=== PATIENT | female | born 1990 | race Caucasian/White ===

== ENCOUNTER → 2018-06-23 07:15 | Outpatient (CLI) | payer OTHER, SELFPAY ==
[2018-06-14 16:39] VITALS: BMI 46.0
== END ==
PROVIDERS: Referring Provider Obstetrics & Gynecology; Visit Provider Obstetrics & Gynecology
DX: O46.90 Antepartum hemorrhage, unspecified, unspecified trimester (principal)
CPT/HCPCS: 36415; 86850; 86900

== ENCOUNTER → 2018-06-24 17:01 | Outpatient (CLI) | payer OTHER, SELFPAY ==
[2018-06-24 16:18] VITALS: BMI 46.0
[2018-06-24 17:34] LABS: Absolute Neutrophil Count 7.8 X10^3/uL (2.0-7.7); Basophil# 0.03 X10^3/uL; Basophil% 0.3 % (0-1); Eosinophil# 0.06 X10^3/uL; Eosinophils% 0.6 % (0-5); Hematocrit 35.5 % (37-47); Hemoglobin 11.3 g/dl (12.0-15.0); Lymphocyte % 20.3 % (19-41); Mean Corp Hgb Conc 31.8 g/gl (32-36); Mean Corpuscular Hgb 29.3 pg (27.0-32.0); Mean Platelet Vol. 9.1 fl (6.2-12.0); Monocyte# 0.72 X10^3/uL; Monocyte% 6.6 % (0-10); Neutrophil # 7.81 X10^3/uL (2.7-7.7); Neutrophil % 71.8 % (47-70); Platelet Count 331 K/mm3 (150-450); RBC Distribution Width SD 43.2 fl (35.1-43.9); Red Blood Count 3.86 M/mm3 (4.2-5.4); White Blood Count 10.9 K/mm3 (4.4-11.0)
[2018-06-24 17:49] LABS: POSITIVE COUNT NO; POSITIVE DIFFERENTIAL NO; POSITIVE MORPHOLOGY NO
[2018-06-24 17:54] LABS: Glucose Challenge Gest 1H 50g 117 mg/dL (70-140)
[2018-06-24 18:48] LABS: HIV - WCH Non-Reactive (Nonreactive); Rubella IgG 370.5 IU/mL
[2018-06-24 21:21] LABS: Chlamydia Trachomatis by PCR Negative (Negative); Neisserai gonorrhoeae by PCR Negative (Negative); Probe Check PASS; Sample Adequacy Control PASS; Specimen Processing Control PASS
[2018-06-24 22:05] LABS: Rapid Plasmin Reagin (RPR) NONREACTIVE (NONREACTIVE)
[2018-06-28 11:11] LABS: HEPATITIS B SURFACE AG Negative (Negative)
[2018-06-30 10:46] LABS: HPV Reflexed? NOT INDICATED
== END ==
PROVIDERS: Referring Provider Obstetrics & Gynecology; Visit Provider Obstetrics & Gynecology
DX: Z34.90 Encounter for supervision of normal pregnancy, unspecified, unspecified trimester (principal)
CPT/HCPCS: 36415; 82950; 85025; 86592; 86703; 86762; 86850; 87086; 87340; 87491; 87591; 87624; 88175; G0145

== ENCOUNTER → 2018-09-13 13:10 | Outpatient (CLI) | payer OTHER, SELFPAY ==
[2018-07-19 13:23] VITALS: BMI 46.0
[2018-08-16 13:32] VITALS: BMI 46.0
--- NOTE | 2018-09-13 13:11 | US_ITS ---
STUDY: SECOND AND THIRD TRIMESTER OBSTETRICAL ULTRASOUND REASON FOR EXAM: Female, 28 years old. Routine survey. LMP: April 29, 2018. TECHNIQUE: Transabdominal TECHNICAL QUALITY: Adequate. PRIOR ULTRASOUND: None. FINDINGS: There is a single intrauterine fetus. The fetus is in a cephalic presentation. There is demonstrated cardiac activity with a heart rate of 144 bpm. There is a normal amniotic fluid volume. The largest amniotic fluid pocket measures 6.8 cm x 5.7 cm. The amniotic fluid index (LIZETH) is within normal limits. The placenta is posterior in location and is not low lying. There are Grade 0 placental changes. The cervix measures 4.1 cm in length. The bilateral adnexal regions are normal. BIOMETRY: BPD: 4.77 cm: 20 weeks, 3 days HC: 17.59 cm: 20 weeks, 1 days AC: 16.75 cm: 21 weeks, 6 days FL: 3.26 cm: 20 weeks, 2 days CI: 80% FL/BPD: 68% FL/HC: FL/AC: 19% HC/AC: 1.05 age by current US: 20 weeks, 5 days. SIMA by current US: January 26, 2019. Estimated weight: 387 grams, +/- 57 grams, 98 %. Age by LMP: 20 weeks, 5 days. SIMA by LMP: February 03, 2019. ANATOMY: Gender: Male Cranium: Normal lateral ventricles. Normal choroid plexus. Normal cerebellum. Normal cisterna magna. Normal face, nose and lips. Chest: Normal 4-chamber heart. Abdomen/Pelvis: Normal diaphragm. Normal stomach. Normal abdominal wall. Normal cord insertion. Normal 3 vessel cord. Normal kidneys. Normal bladder. Spine: Normal cervical spine. Normal thoracic spine. Normal lumbar spine. Normal sacrum. Extremities: Normal bilateral upper extremities. Normal bilateral lower extremities. US/OB Anatomy Scan IMPRESSION: Single live intrauterine gestation with a mean gestational age of 20 weeks and 55 days. Electronically Signed: Gustavo Lara, at 9:39 EDT , Service support ,
== END ==
PROVIDERS: Referring Provider Obstetrics & Gynecology; Visit Provider Obstetrics & Gynecology
DX: O09.90 Supervision of high risk pregnancy, unspecified, unspecified trimester (principal)
CPT/HCPCS: 76805

== ENCOUNTER → 2018-11-08 09:47 | Outpatient (CLI) | payer OTHER, SELFPAY ==
[2018-11-08 09:15] VITALS: BMI 46.0
[2018-11-08 10:12] LABS: Absolute Lymphocyte Count 1.67 X10^3/ul (0.83-4.51); Absolute Neutrophil Count 8.9 X10^3/uL (2.0-7.7); Basophil# 0.01 X10^3/uL; Basophil% 0.1 % (0-1); Eosinophil# 0.03 X10^3/uL; Eosinophils% 0.3 % (0-5); Hematocrit 34.3 % (37-47); Hemoglobin 11.3 g/dl (12.0-15.0); Lymphocyte # 1.67 X10^3/ul (4.0); Lymphocyte % 14.7 % (19-41); Mean Corp Hgb Conc 32.9 g/gl (32-36); Mean Corpuscular Hgb 30.5 pg (27.0-32.0); Mean Corpuscular Volume 92.5 fL (81-99); Mean Platelet Vol. 9.6 fl (6.2-12.0); Monocyte# 0.63 X10^3/uL; Monocyte% 5.6 % (0-10); Neutrophil # 8.91 X10^3/uL (2.7-7.7); Neutrophil % 78.6 % (47-70); POSITIVE COUNT NO; POSITIVE DIFFERENTIAL NO; POSITIVE MORPHOLOGY NO; Platelet Count 274 K/mm3 (150-450); RBC Distribution Width CV 13.5 % (11.6-14.6); RBC Distribution Width SD 44.4 fl (35.1-43.9); Red Blood Count 3.71 M/mm3 (4.2-5.4); White Blood Count 11.3 K/mm3 (4.4-11.0)
[2018-11-08 10:28] LABS: Glucose Challenge Gest 1H 50g 127 mg/dL (70-140)
== END ==
PROVIDERS: Referring Provider Obstetrics & Gynecology; Visit Provider Obstetrics & Gynecology
DX: Z34.90 Encounter for supervision of normal pregnancy, unspecified, unspecified trimester (principal)
CPT/HCPCS: 36415; 82950; 85025

== ENCOUNTER → 2018-12-14 13:48 | Outpatient (CLI) | payer OTHER, SELFPAY ==
[2018-11-08 09:15] VITALS: BMI 46.0
[2018-11-29 15:35] VITALS: BMI 46.0
--- NOTE | 2018-12-14 13:49 | US_ITS ---
STUDY: SECOND AND THIRD TRIMESTER OBSTETRICAL ULTRASOUND - LIMITED REASON FOR EXAM: Female, 28 years old. Assess for growth. LMP: April 29, 2018 PRIOR ULTRASOUND: September 13, 2018 TECHNIQUE: Transabdominal TECHNICAL QUALITY: Adequate. FINDINGS: There is a single intrauterine fetus. The fetus is in a cephalic presentation. There is demonstrated cardiac activity with a heart rate of 156 bpm. There is a normal amniotic fluid volume. The largest amniotic fluid pocket measures 4.5 cm. The amniotic fluid index (LIZETH) is 17.8 cm. The placenta is posterior There are Grade 1 placental changes. The cervix measures 4.41 cm in length. BIOMETRY: BPD: 8.82 cm: 35 weeks, 5 days HC: 31.48 cm: 35 weeks, 3 days AC: 31.19 cm: 35 weeks, 1 days FL: 6.67 cm: 34 weeks, 3 days Age by LMP: 32 weeks, 5 days. SIMA by LMP: February 03, 2019 age by prior US: 33 weeks, 5 days. SIMA by prior US: January 16, 2019. age by current US: 35 weeks, 2 days. SIMA by current US: January 16, 2019. Estimated weight: 2564 grams, +/- 37 grams, 96 percentile. US/OB Limited With Biometrics IMPRESSION: Single intrauterine with an estimated gestational age by ultrasound of 35 weeks and 2 days and an SIMA of January 16, 2019. Electronically Signed: Komal Hopper MD at 16:08 EDT Tel , Service support ,
== END ==
PROVIDERS: Referring Provider Obstetrics & Gynecology; Visit Provider Obstetrics & Gynecology
DX: O99.210 Obesity complicating pregnancy, unspecified trimester (principal); Z3A.00 Weeks of gestation of pregnancy not specified
CPT/HCPCS: 76816

== ENCOUNTER 2019-01-05 16:05 | Outpatient (CLI) | payer OTHER, SELFPAY ==
[2019-01-05 15:15] VITALS: BMI 46.7
[2019-01-05 16:15] VITALS: BMI 46.6
--- NOTE | 2019-01-05 16:15 | US_ITS ---
STUDY: OBSTETRICAL ULTRASOUND - BIOPHYSICAL PROFILE REASON FOR EXAM: Female, 28 years old. Nonreactive stress test LMP: PRIOR ULTRASOUND: December 14 2018 TECHNIQUE: Transabdominal TECHNICAL QUALITY: Adequate. FINDINGS: There is a single intrauterine fetus. The fetus is in a cephalic presentation. There is demonstrated cardiac activity with a heart rate of 170 bpm. There is a normal amniotic fluid volume. The largest amniotic fluid pocket measures 6.9 cm. The amniotic fluid index (LIZETH) is 14.6 cm. The placenta is posterior There are Grade 2-3 placental changes. Age by LMP: 35 weeks, 6 days. SIMA by LMP: February 03, 2019. BIOPHYSICAL PROFILE: Breathing Movements (FBM): 0 Gross Body Movements (GBM): 2 Tone (FT): 2 Amniotic Fluid Volume (AFV): 2 TOTAL SCORE: US/Biophysical Profile IMPRESSION: Abnormal biophysical profile of 10/16 Electronically Signed: Johny Bey MD at 18:42 EDT , Service support ,
[2019-01-05] MEDS: Lactated Ringers 1,000 ML 50 ML IV (17:00)
[2019-01-05 17:42] LABS: Basophil# 0.02 X10^3/uL; Basophil% 0.2 % (0-1); Eosinophil# 0.04 X10^3/uL; Eosinophils% 0.3 % (0-5); Hematocrit 34.8 % (37-47); Hemoglobin 11.2 g/dL (12.0-15.0); Lymphocyte % 14.8 % (19-41); Mean Corp Hgb Conc 32.2 g/dL (32-36); Mean Corpuscular Hgb 30.4 pg (27.0-32.0); Mean Corpuscular Volume 94.3 fL (81-99); Mean Platelet Vol. 10.1 fl (6.2-12.0); Monocyte# 0.82 X10^3/uL; Monocyte% 6.4 % (0-10); NRBC Flagged by Analyzer 0 % (0-5); Neutrophil # 9.97 X10^3/uL (2.7-7.7); Neutrophil % 77.3 % (47-70); Platelet Count 255 K/mm3 (150-450); RBC Distribution Width CV 13.6 % (11.6-14.6); RBC Distribution Width SD 46.3 fl (35.1-43.9); Red Blood Count 3.69 M/mm3 (4.2-5.4); White Blood Count 12.9 K/mm3 (4.4-11.0)
--- NOTE | 2019-01-08 03:35 | OB.TRI.PN ---
Progress Notes Date of Service: 01/05/19 Progress Note: heart tones 150 moderate variability reactive no decelerations category 1 tracing [place]: No regular contractions Assessment and plan extended monitoring and BPP obesity in ?reactive NST 8 out of 10 BPP. Discussed kick counts and plan repeat NST in 24 hours. Laboratory Studies: Laboratory Tests 01/05/19 01/05/19 Range/Units 16:55 16:55 WBC 12.9 H (4.4-11.0) K/mm3 RBC 3.69 L (4.2-5.4) M/mm3 Hgb 11.2 L (12.0-15.0) g/dL Hct 34.8 L (37-47) % MCV 94.3 (81-99) fL MCH 30.4 (27.0-32.0) pg MCHC 32.2 (32-36) g/dL RDW Std Deviation 46.3 H (35.1-43.9) fl RDW Coeff of Alexi 13.6 (11.6-14.6) % Plt Count 255 (150-450) K/mm3 MPV 10.1 (6.2-12.0) fl Immature Gran % (Auto) 1.000 H (0.0-0.9) % Neut % (Auto) 77.3 H (47-70) % Lymph % (Auto) 14.8 L (19-41) % [place] % (Auto) 6.4 (0-10) % Eos % (Auto) 0.3 (0-5) % Baso % (Auto) 0.2 (0-1) % Absolute Neuts (auto) 10.0 H (2.0-7.7) X10^3/uL Absolute Lymphs (auto) 1.90 (0.83-4.51) X10^3/uL Nucleated RBC % 0 (0-5) % Blood Type O POSITIVE Antibody Screen NEGATIVE Multi Select Codes - Urinary/Genital Urinary/Genital CPT Codes: 83086-99 non-stress test Interp
== END 2019-01-05 18:25 | disposition home or self-care (01) ==
LOC: WPOUT 16:10 → WP 16:10
PROVIDERS: Referring Provider Obstetrics & Gynecology; Visit Provider Obstetrics & Gynecology
DX: O99.210 Obesity complicating pregnancy, unspecified trimester (principal); Z3A.00 Weeks of gestation of pregnancy not specified
CPT/HCPCS: 36415; 59025; 59050; 76818; 85025; 86850; 86900; 86901; 99218; J7120; G0378

== ENCOUNTER → 2019-01-11 13:52 | Outpatient (CLI) | payer OTHER, SELFPAY ==
[2018-11-08 09:15] VITALS: BMI 46.0
[2019-01-11 07:02] VITALS: BMI 46.6
--- NOTE | 2019-01-11 13:56 | US_ITS ---
STUDY: SECOND AND THIRD TRIMESTER OBSTETRICAL ULTRASOUND - LIMITED REASON FOR EXAM: Female, 28 years old. Routine survey. LMP: April 29, 2018. PRIOR ULTRASOUND: December 14, 2018. TECHNIQUE: Transabdominal TECHNICAL QUALITY: Adequate. FINDINGS: There is a single intrauterine fetus. The fetus is in a cephalic presentation. There is demonstrated cardiac activity with a heart rate of 160 bpm. There is a normal amniotic fluid volume. The largest amniotic fluid pocket measures 6.7 cm x 4.2 cm. The amniotic fluid index (LIZETH) is 18.0 cm. The placenta is posterior in location and is not low lying. There are Grade 2 placental changes. The cervix measures 3.2 cm in length. BIOMETRY: BPD: 9.55 cm: 39 weeks, 0 days HC: 33.71 cm: 38 weeks, 5 days AC: 34.99 cm: 39 weeks, 0 days FL: 7.51 cm: 38 weeks, 3 days Age by LMP: 37 weeks, 5 days. SIMA by LMP: February 03, 2019. age by prior US: 39 weeks, 2 days. SIMA by prior US: January 16, 2019. age by current US: 38 weeks, 6 days. SIMA by current US: January 19, 2019. Estimated weight: 3591 grams, +/- 524 grams, 95 percentile. US/OB Limited With Biometrics IMPRESSION: Single live intrauterine gestation with a mean gestational age of 39 weeks and 2 days. The measurements obtained today fall within the normal expected range. Electronically Signed: Gustavo Lara, at 16:01 EDT , Service support ,
== END ==
PROVIDERS: Referring Provider Obstetrics & Gynecology; Visit Provider Obstetrics & Gynecology
DX: O09.90 Supervision of high risk pregnancy, unspecified, unspecified trimester (principal); Z3A.00 Weeks of gestation of pregnancy not specified
CPT/HCPCS: 76816

== ENCOUNTER → 2019-01-12 16:11 | Outpatient (CLI) | payer OTHER, SELFPAY ==
[2019-01-12 15:04] VITALS: BMI 46.6
== END ==
PROVIDERS: Referring Provider Nurse Practitioner Women's Health; Visit Provider Nurse Practitioner Women's Health
DX: O09.90 Supervision of high risk pregnancy, unspecified, unspecified trimester (principal)
CPT/HCPCS: 87081

== ENCOUNTER 2019-01-29 06:07 | Inpatient (IN) | payer OTHER, SELFPAY ==
[2019-01-11 07:02] VITALS: BMI 46.6
[2019-01-25 15:10] VITALS: BMI 46.6
[2019-01-29] MEDS: Lactated Ringers 500 ML 999 ML IV ×3 (07:10→11:25)
[2019-01-29 07:16] VITALS: BMI 48.6
[2019-01-29 07:44] LABS: Absolute Lymphocyte Count 1.37 X10^3/uL (0.83-4.51); Absolute Neutrophil Count 10.3 X10^3/uL (2.0-7.7); Basophil# 0.02 X10^3/uL; Basophil% 0.2 % (0-1); Eosinophil# 0.02 X10^3/uL; Eosinophils% 0.2 % (0-5); Hemoglobin 10.7 g/dL (12.0-15.0); Lymphocyte # 1.37 X10^3/ul (4.0); Mean Corp Hgb Conc 32.4 g/dL (32-36); Mean Corpuscular Hgb 30.7 pg (27.0-32.0); Mean Corpuscular Volume 94.6 fL (81-99); Mean Platelet Vol. 9.9 fl (6.2-12.0); Monocyte# 0.72 X10^3/uL; Monocyte% 5.8 % (0-10); NRBC Flagged by Analyzer 0 % (0-5); Neutrophil # 10.27 X10^3/uL (2.7-7.7); Platelet Count 241 K/mm3 (150-450); RBC Distribution Width CV 13.5 % (11.6-14.6); RBC Distribution Width SD 46.1 fl (35.1-43.9); Red Blood Count 3.49 M/mm3 (4.2-5.4); White Blood Count 12.5 K/mm3 (4.4-11.0)
[2019-01-29] MEDS: Lactated Ringers 1,000 ML 50 ML IV (08:10)
[2019-01-29 08:17] LABS: Absolute Lymphocyte Count 1.33 X10^3/uL (0.83-4.51); Absolute Neutrophil Count 10.2 X10^3/uL (2.0-7.7); Basophil# 0.02 X10^3/uL; Basophil% 0.2 % (0-1); Eosinophil# 0.02 X10^3/uL; Eosinophils% 0.2 % (0-5); Hematocrit 32.3 % (37-47); Hemoglobin 10.5 g/dL (12.0-15.0); Lymphocyte # 1.33 X10^3/ul (4.0); Lymphocyte % 10.8 % (19-41); Mean Corp Hgb Conc 32.5 g/dL (32-36); Mean Corpuscular Hgb 30.6 pg (27.0-32.0); Mean Corpuscular Volume 94.2 fL (81-99); Mean Platelet Vol. 10.7 fl (6.2-12.0); Monocyte# 0.65 X10^3/uL; Monocyte% 5.3 % (0-10); NRBC Flagged by Analyzer 0 % (0-5); Neutrophil # 10.19 X10^3/uL (2.7-7.7); Neutrophil % 82.8 % (47-70); Platelet Count 235 K/mm3 (150-450); RBC Distribution Width CV 13.8 % (11.6-14.6); RBC Distribution Width SD 47.3 fl (35.1-43.9); Red Blood Count 3.43 M/mm3 (4.2-5.4); White Blood Count 12.3 K/mm3 (4.4-11.0)
--- NOTE | 2019-01-29 09:07 | HP.PCM_ITS ---
- Problem List (1) Active labor at term Status: Acute (2) IUD contraception Status: Acute (3) Supervision of high-risk Status: Acute Qualifiers: Comment: PRR SIMA:02/03/19 sergio Kelly Spouse: Arnel (4) Obesity affecting Status: Acute Qualifiers: Comment: 1 tm glucola, healthy weight gain discussed, recommend growth us after 32 weeks and weekly nsts (5) Status: Acute Qualifiers: Comment: genetic, carrier, and ntd screening declined. anatomy us reviewed History Date of Admission: 01/29/19 Final SIMA: 02/03/19 Gestational age: 39 Weeks and 2 Days History of this : This is a 28 year-old, at 39 weeks gestational age presents IAL 5-6 cm dilated. she has had an uncomplicated . Surgical History: Surgical History (Last Reviewed 01/25/19 @ 15:09 by Fadia Bobo) History of tonsillectomy Z90.89 Allergies No Known Allergies Allergy (Verified 01/29/19 07:18) Home Medications: Home Medications vitamin#30 30 mg iron-10 mg iron-folic acid 1 mg-omg3 capsule 1 cap PO DAILY cap 06/14/18 Smoking Status: Never smoker Alcohol: None Number of Fetus(es): 1 NST - FHR Rate Baby A Baseline: 140 Variability:: Moderate Accelerations:: 15 x 15 Decelerations:: None NST Reactive:: Yes FHR Category:: Category I Uterine Activity:: q 3-5 History Past Pregnancies: Past Pregnancies Delivery Date Name GA/Weeks Outcome Route Weight Infant Gender Labor Length Anesthesia Delivery Location Provider FOB Labs: Mom's Problem List Problem Status Onset Code Active labor at term Acute Mom's Labs & Results 01/29/19 07:15 WBC 12.5 H RBC 3.49 L Hgb 10.7 L Hct 33.0 L MCV 94.6 MCH 30.7 MCHC 32.4 RDW Std Deviation 46.1 H RDW Coeff of Alexi 13.5 Plt Count 241 MPV 9.9 Immature Gran % (Auto) 0.800 Neut % (Auto) 82.0 H Lymph % (Auto) 11.0 L [place] % (Auto) 5.8 Eos % (Auto) 0.2 Baso % (Auto) 0.2 Absolute Neuts (auto) 10.3 H Absolute Lymphs (auto) 1.37 Nucleated RBC % 0 Course Did the patient receive Yes care? Labs Blood Type: O RH: POSITIVE RPR/VDRL/Syphilis Nonreactive Rubella status Immune HbSAg Negative Date Done: 06/24/18 Chlamydia Negative Gonorrhea Negative HIV/AIDS Non-Reactive Group B Strep: Negative Current Obstetrical History Gestational Diabetes No Incompetent Cervix No Infertility No IUGR No Macrosomia No Hypertension/Pre-eclampsia No Placenta Previa/Abruption No PTL/PROM No Uterine anomaly No Oligohydramnios No Polyhydramnios No Multiple gestation No Past Medical History Asthma Yes: childhood asthma Diabetes No Hypertension No Heart disease No Mitral valve prolapse No Neurologic/Seizure disorder/ No Migraines Kidney disease No Liver disease No Varicosities No Clotting disorders/Hx of DVT No Thyroid Dysfunction No Other medical diseases No Psychiatric disorders No Major trauma No Abnormal PAP smear No Sleep apnea No Mammogram in the last 2 years No Social History Marital Status: Alleged father Arnel Dimas Hx Smoking No Smoking Status Never smoker Expected Infant Delivery Method: Spontaneous Vaginal Review of Systems Constitutional: Denies: Fever, Malaise Eyes: Denies: Blurred vision, Vision Change HEENT: Denies: Head Aches, Visual Changes Cardiovascular: Denies: Chest Pain, Palpitations Respiratory: Denies: Cough, Shortness of Breath, Wheezing Gastrointestinal: Denies: Abdominal Pain, Diarrhea, Nausea, Vomiting Genitourinary: Denies: Dysuria, Hematuria Musculoskeletal: Denies: Joint Pain, Muscle pain Skin: Denies: Lesions, Rash Neurological: Denies: Blurred vision, Focal weakness, Headaches Psychiatric: Denies: Anxiety, Depression Endocrine: Denies: Heat/ Cold Intolerance Hematologic/ Lymphatic: Denies: Easy Bruising, Easy Bleeding Physical Exam General: Alert, Cooperative, No apparent distress HEENT: Atraumatic, Normocephalic. Negative for: Thyromegaly, Lymphadenopathy Cardiovascular: Regular rate Lungs: Normal air movement Abdomen: Soft, Non Tender, Gravid Neurological: Deep Tendon Reflexes 2+/4 and Symmetrical, Neuro grossly intact. Negative for: Clonus [employer]: Normal external genitalia. Negative for: Vulvar lesions Estimated gestational size: Appropriate for gestational size Presentation: Cephalic Cervix Dilation (cm): 5.5 Assessment/Plan All Active Problems (Last Reviewed 01/25/19 @ 15:09 by Fadia Bobo) Active labor at term (Acute) IUD contraception (Acute) Supervision of high-risk (Acute) Obesity affecting (Acute) (Acute) This is a 28 year-old, , at 39 weeks gestational age presents IAL. Patient presents in active labor, plan expectant management for vaginal deliver y. AROM clear fluid. Pitocin if no cervical change. Pain management: Plans epidural. GBS negative. Management of any complications: None. I have reviewed the [facility] and made any clinically relevant updates.
[2019-01-29] MEDS: fentaNYL-bupivacaine (epidural) 100 ML BAG EPIDURAL ×3 (11:41→20:56)
[2019-01-29] MEDS: Oxytocin 30 units/NS 500 ml 30 UNITS/500 ML IV.SOLN IV (14:17)
[2019-01-29] MEDS: Lactated Ringers 1,000 ML 200 ML IV ×2 (14:42→19:48)
--- NOTE | 2019-01-29 16:34 | PN_ITS ---
Progress Note FHT: 140 Moderate variability reactive no decelerations category I tracing [place]: q2-3 Contractions position changes to encourage descent 8-9 cm pit per protocol
[2019-01-29] MEDS: Acetaminophen 325 MG Tablet PO (17:42)
[2019-01-29] MEDS: Ondansetron 4 MG/2 ML Vial IV (17:43)
[2019-01-30] MEDS: Lactated Ringers 1,000 ML 190 ML IV (00:57)
[2019-01-30] MEDS: Lactated Ringers 500 ML 999 ML IV (01:53)
[2019-01-30] MEDS: fentaNYL-bupivacaine (epidural) 100 ML BAG EPIDURAL (02:10)
--- NOTE | 2019-01-30 02:46 | PLAC_PTH ---
PATIENT: SHAHRAM SMITH LOC: WP U#:[id number] AGE/SX: 28/F ROOM: WP002 RE01/29/[address]: Dr. Arabella Costa MD : 1990 BED: 1 DIS: 02/01/2019 SPEC #: [id number] RECD: 01/30/19 04:13 STATUS: JOSEPH REMakayla #: [id number] GEORGE: 01/30/19 02:[address]: Arabella Costa DEPT: SURGICAL PATHOLOGY RECD BY: Josh Self ENTERED: 01/31/19 12:06 SP TYPE: PLACENTA OTHR DR: No Primary Care Phys Tissues: Placenta, NOS Procedures: Surgery Specimen Level V HEADER OPERATION: Vaginal delivery PRE-OP DIAGNOSIS: Hemorrhage TISSUE SUBMITTED: Placenta MICROSCOPIC DIAGNOSIS Placenta: Placental disc - third trimester placenta (659 gm). - Focal acute vasculitis of subamnionic blood vessels. Membranes - moderate acute chorioamnionitis. Umbilical cord - three blood vessels and moderate acute funisitis. ERNIE:haider 02/02/19 MICROSCOPIC DESCRIPTION Slides are reviewed. GROSS DESCRIPTION SPECIMEN: PLACENTA / CLINICAL INFORMATION: A. Weight: 4.132 kg B. Gestational Age: 39 weeks C. Sex: Male PLACENTAL WEIGHT (POST FIXATION): 659 gm PLACENTAL DIMENSIONS: 18 x 18 x 3.5 cm PLACENTAL SHAPE: Usual ovoid PLACENTAL WEIGHT FOR GESTATIONAL AGE: Over 99th percentile MEMBRANES - Present A. Insertion: Marginal B. Site of rupture from edge: 5 cm from edge of placental disc C. Color of membrane: Shaikh, slightly greenish consistent with meconium staining. D. Abnormalities: None UMBILICAL CORD - Present A. Color: Shaikh-arroyo B. Insertion: Central C. Length: 35 cm D. Diameter: 1.3 cm E. Number of vessels: Three F. Abnormalities: None PLACENTAL DISC - Present A. Color of surface: Shaikh-arroyo B. surface abnormalities: surface is shaikh-greenish consistent with meconium staining. A focal area of subamnionic is noted adjacent to the insertion of the umbilical cord. C. Maternal cotyledons: Intact with minimal tears D. Attached retro placental clot: No clot E. Cut surface: Dark red and spongy F. Lesions: None G. Separate clot: Absent SECTIONS SUBMITTED: 1. Membrane roll 2. Cord, maternal end 3. Cord, end 4. Placental disc, and maternal surfaces 5. Placental disc, and maternal surfaces 6. Placental disc, and maternal surfaces SJ:haider 02/01/19 TC:3 CPT: 92165
[2019-01-30] MEDS: Oxytocin 30 units/NS 500 ml 30 UNITS/500 ML IV.SOLN 500 UNITS IV (02:50)
[2019-01-30] MEDS: Methylergonovine 0.2 MG/ML Ampul IM (02:54)
[2019-01-30] MEDS: 0.9% Saline Lock 10 ML Syringe IV ×2 (03:13→15:53)
--- NOTE | 2019-01-30 03:33 | PCM.OPRPT ---
Problem List (1) Active labor at term Status: Acute (2) IUD contraception Status: Acute (3) Supervision of high-risk Status: Acute Qualifiers: Comment: PRR SIMA:02/03/19 sergio Kelly Spouse: Arnel (4) Obesity affecting Status: Acute Qualifiers: Comment: 1 tm glucola, healthy weight gain discussed, recommend growth us after 32 weeks and weekly nsts (5) Status: Acute Qualifiers: Comment: genetic, carrier, and ntd screening declined. anatomy us reviewed Vaginal Delivery Maternal Presentation: Active Labor 28-year-old G1, P0 at 39 weeks presents in active labor 5 to 6 cm. Amniotic Membrane Rupture Type: Artificial Amniotic Fluid Description: Clear Final SIMA: 02/03/19 Gestational age: 39 Weeks and 3 Days Date of Procedure: 01/30/19 Pre-Operative Diagnosis: ial maternal fever at delivery Post-Operative Diagnosis: same plus hemorrhage sec atony and retained membranes Surgery/ Procedure Performed: Spontaneous Vaginal Delivery, - - uterine curettage Type of Anesthesia: Epidural Description of Procedure: Patient began pushing and delivered the head in the ARINA presentation. The head was delivered atraumatically. The anterior and posterior shoulders delivered without complication followed by the rest of the infant and the infant was placed on the maternal abdomen. Delayed cord clamping was employed for approximately 60 seconds. Cord was clamped and cut and gentle traction was applied to the cord and the placenta delivered spontaneously immediately following it was noted to be intact with three-vessel cord. The perineum and vagina were inspected and noted to have a supraclitoral first-degree laceration that was repaired with 3-0 Vicryl rapide and a second-degree perineal laceration that was repaired with a 3-0 Vicryl rapide. Patient developed increased bleeding and uterine atony and after manual uterine exploration some retained membranes were noted. Banjo curette was used to scrape the lining of the uterus which again removed additional membranes. It was then felt that all retained products were removed and after given Methergine and Hemabate and IV Pitocin with bimanual massage bedside ultrasound confirmed no additional products in the lining of the uterus and bleeding slowed down to within normal limits. Tranexamic acid was also given to the IV EBL was 1300 cc. Patient and infant tolerated delivery well. Vital signs showed initial sinus tachycardia and then resolution the normal blood pressure and heart rate in the 90s. Additional IV fluids were given and CBC was ordered stat as well as in the morning. 2 units were typed and crossed to be held and available. Plan of care was reviewed with nursing and plan for IV Ancef to be given due to manual manipulation. Presentation: ARINA Placental Delivery Description: Spontaneous Cord Entanglement: None Estimated Blood Loss: 1300 A gender: Male Episiotomy Description: None Laceration: Perineal Extension/lac, 2nd degree Medications given after delivery: IV Pitocin, IM Methergin, IM Hemabate, - - tranexamic acid Complications: - - hemorrhage Multi Select Codes - Urinary/Genital Urinary/Genital CPT Codes: 69238 Vaginal Delivery global pkg, Other Procedure See Report - 30476 uterine curettage
[2019-01-30 03:50] LABS: Absolute Lymphocyte Count 1.09 X10^3/uL (0.83-4.51); Absolute Neutrophil Count 12.8 X10^3/uL (2.0-7.7); Basophil# 0.03 X10^3/uL; Basophil% 0.2 % (0-1); Eosinophil# 0.01 X10^3/uL; Eosinophils% 0.1 % (0-5); Hematocrit 31.5 % (37-47); Hemoglobin 10.2 g/dL (12.0-15.0); Lymphocyte # 1.09 X10^3/ul (4.0); Lymphocyte % 7.2 % (19-41); Mean Corp Hgb Conc 32.4 g/dL (32-36); Mean Corpuscular Hgb 30.7 pg (27.0-32.0); Mean Corpuscular Volume 94.9 fL (81-99); Monocyte# 1.03 X10^3/uL; Monocyte% 6.8 % (0-10); NRBC Flagged by Analyzer 0 % (0-5); Neutrophil # 12.82 X10^3/uL (2.7-7.7); Neutrophil % 85.2 % (47-70); Platelet Count 216 K/mm3 (150-450); RBC Distribution Width CV 13.7 % (11.6-14.6); RBC Distribution Width SD 47.3 fl (35.1-43.9); Red Blood Count 3.32 M/mm3 (4.2-5.4); White Blood Count 15.1 K/mm3 (4.4-11.0)
[2019-01-30] MEDS: Carboprost Tromethamine 250 MCG/ML Ampul IM (04:08)
[2019-01-30] MEDS: Cefazolin 2 GM in 0.9% Normal Saline 100 ML IV (04:09)
[2019-01-30] MEDS: Naproxen 250 MG Tablet 500 MG PO (05:36)
[2019-01-30 07:20] LABS: Absolute Lymphocyte Count 1.16 X10^3/uL (0.83-4.51); Absolute Neutrophil Count 19.6 X10^3/uL (2.0-7.7); Basophil# 0.04 X10^3/uL; Basophil% 0.2 % (0-1); Eosinophil# 0.01 X10^3/uL; Hematocrit 26.4 % (37-47); Hemoglobin 8.8 g/dL (12.0-15.0); Lymphocyte # 1.16 X10^3/ul (4.0); Lymphocyte % 5.1 % (19-41); Mean Corp Hgb Conc 33.3 g/dL (32-36); Mean Corpuscular Hgb 31.3 pg (27.0-32.0); Mean Platelet Vol. 10.1 fl (6.2-12.0); Monocyte# 1.56 X10^3/uL; Monocyte% 6.9 % (0-10); NRBC Flagged by Analyzer 0 % (0-5); Neutrophil # 19.64 X10^3/uL (2.7-7.7); POSITIVE DIFFERENTIAL YES; Platelet Count 211 K/mm3 (150-450); RBC Distribution Width CV 13.6 % (11.6-14.6); RBC Distribution Width SD 46.5 fl (35.1-43.9); Red Blood Count 2.81 M/mm3 (4.2-5.4); White Blood Count 22.6 K/mm3 (4.4-11.0)
[2019-01-30 07:24] LABS: Differential Indicated SCAN CRITERIA MET
[2019-01-30 08:00] VITALS: BP 130/61; PULSE 84; RESP 18; TEMP 36; TEMP 36.6; O2SAT 96
[2019-01-30 12:00] VITALS: BP 142/65; PULSE 100; RESP 16; TEMP 36.2
[2019-01-30] MEDS: Prenatal Vits Tablet 1 TABLET PO (15:53)
[2019-01-30 15:54] VITALS: BP 128/62; PULSE 88; RESP 20; TEMP 36.6
[2019-01-30 20:14] VITALS: BP 104/54; PULSE 96; RESP 18; TEMP 36.6
[2019-01-31] VITALS (7 sets, daily range): BP systolic 85–119; BP diastolic 39–66; PULSE 84–106; RESP 16–20; TEMP 36.1–36.6
--- NOTE | 2019-01-31 04:26 | NURSING ---
0420: This RN in room to assess patient's vital signs and perform a focused assessment. Pt was sleeping when RN entered room. Blood pressure was low, but HR and RR were WNL. Uterus firm at u-1 with small bleeding. Pt. reports bleeding has been a small amount with no clots or trickles. Pt. denies feeling fatigued, lightheaded, dizzy, or sick. Another blood pressure was obtained and still running 80s/40s. This RN instructed pt. that another BP and belly check would be obtained at 0600. Will continue to monitor.
[2019-01-31] MEDS: 0.9% Saline Lock 10 ML Syringe IV (05:09)
[2019-01-31] MEDS: Prenatal Vits Tablet 1 TABLET PO (13:09)
[2019-01-31 13:39] LABS: Pathologist Review Reviewed
--- NOTE | 2019-01-31 14:43 | NURSING ---
pt was pumping this morning using her own pump and starting to get a few drops. This afternoon she has started putting baby to breast and he has nursed 20 minutes at one feeding. Rosalinda Banuelos RN is also helping her.
[2019-01-31] MEDS: Naproxen 250 MG Tablet 500 MG PO (15:09)
[2019-02-01 01:59] VITALS: BP 103/42; PULSE 89; RESP 18; TEMP 37.1
[2019-02-01] MEDS: Naproxen 250 MG Tablet 500 MG PO ×2 (02:05→09:48)
--- NOTE | 2019-02-01 07:56 | PCM.PN.OB ---
Patient Problems: Active and Suspected Problems (Last Reviewed 01/25/19 @ 15:09 by Fadia Bobo) Active labor at term (Acute) Subjective: doing well no complaints pain controlled no CP SOB N V ambulating well tolerating po lochia moderate, going well. Baby in SCN but doing well. - Physical Exam General: Alert, Oriented x3 Abdomen: Soft, Non Tender, Non-Distended, - - FF below U Vital Signs Temp Pulse Resp BP Pulse Ox 98.7 F 89 18 103/42 L 96 02/01/19 01:59 02/01/19 01:59 02/01/19 01:59 02/01/19 01:59 01/30/19 08:00 Oxygen Delivery Method Room Air Weight: 319 lb 10.724 oz Body Mass Index (BMI) 48.6 Intake and Output for Last 24 Hours 01/30/19 01/31/19 02/01/19 23:59 23:59 23:59 Intake Total 2171.99 / 2171.99 Output Total 450 / 450 Balance 1721.99 / 1721.99 Laboratory Tests Past 24 Hrs 01/30/19 07:04 Diff Path Review Reviewed Medical Necessity - Tobacco Use Smoking Status: Never smoker Assessment/Plan All Active Problems (Last Reviewed 01/25/19 @ 15:09 by Fadia Bobo) Active labor at term (Acute) IUD contraception (Acute) Supervision of high-risk (Acute) Obesity affecting (Acute) (Acute) s/p PPD # 2 1. routine post delivery care 2. breast feeding- support given 3. rh positive 4. rubella immune 5. stool softener encouraged 6. Continue vitamin and alternate time OTC FE 7. home today
[2019-02-01 08:00] VITALS: BP 134/83; PULSE 94; RESP 16; TEMP 36.2
--- NOTE | 2019-02-01 08:03 | DCINST_ITS ---
Additional Instructions: If you experience any of the following, contact your healthcare provider. * Bleeding that soaks a pad every hour for 2 hours * Fever 100.4 or higher * Unrelieved incision or abdominal pain * Swelling, redness, discharge or bleeding from your incision or episiotomy site * Your incision begins to separate * Problems urinating (including inability to urinate or burning while urinating). * Visual changes * Severe headache * Flu-like symptoms * Pain or redness in one of both of your breasts * Pain, warmth, tenderness or swelling in your legs, especially the calf area * Frequent nausea and vomiting * Symptoms of depression or anxiety If you experience any of the following, call 911 or go to the nearest Emergency Room. * Chest pain * Problems breathing * Seizure activity * Partial or complete paralysis of a body part, slurred speech, weakness or drooping of the face, or a sudden inability to walk or hold your balance Allergies/Adverse Reactions: Allergies No Known Allergies Allergy (Verified 01/29/19 07:18) Medications to take at Discharge vitamin#30 30 mg iron-10 mg iron-folic acid 1 mg-omg3 capsule 1 cap PO DAILY cap 06/14/18 Primary Care Physician: Care Physician,No Primary [Primary Care Provider] - Test Results: Test results from this visit will be discussed in further detail at your follow- up appointment, if applicable.
--- NOTE | 2019-02-01 08:03 | PCM.DCVAG ---
Additional Instructions: If you experience any of the following, contact your healthcare provider. Bleeding that soaks a pad every hour for 2 hours Fever 100.4 or higher Unrelieved incision or abdominal pain Swelling, redness, discharge or bleeding from your incision or episiotomy site Your incision begins to separate Problems urinating (including inability to urinate or burning while urinating). Visual changes Severe headache Flu-like symptoms Pain or redness in one of both of your breasts Pain, warmth, tenderness or swelling in your legs, especially the calf area Frequent nausea and vomiting Symptoms of depression or anxiety If you experience any of the following, call 911 or go to the nearest Emergency Room. Chest pain Problems breathing Seizure activity Partial or complete paralysis of a body part, slurred speech, weakness or drooping of the face, or a sudden inability to walk or hold your balance Allergies/Adverse Reactions: Allergies No Known Allergies Allergy (Verified 01/29/19 07:18) Medications to take at Discharge vitamin#30 30 mg iron-10 mg iron-folic acid 1 mg-omg3 capsule 1 cap PO DAILY cap 06/14/18 Primary Care Physician: Care Physician,No Primary [Primary Care Provider] - Test Results: Test results from this visit will be discussed in further detail at your follow-up appointment, if applicable.
--- NOTE | 2019-02-01 09:33 | PCM.PN.OB ---
Patient Problems: Active and Suspected Problems (Last Reviewed 01/25/19 @ 15:09 by Fadia Bobo) Active labor at term (Acute) Subjective: late entry- seen 01/31- doing well no complaints pain controlled no CP SOB N V ambulating well tolerating po lochia moderate, going well - Physical Exam Vital Signs Temp Pulse Resp BP Pulse Ox 97.2 F L 94 16 134/83 H 96 02/01/19 08:00 02/01/19 08:00 02/01/19 08:00 02/01/19 08:00 01/30/19 08:00 Oxygen Delivery Method Room Air Weight: 319 lb 10.724 oz Body Mass Index (BMI) 48.6 Intake and Output for Last 24 Hours 01/30/19 01/31/19 02/01/19 23:59 23:59 23:59 Intake Total 2171.99 / 2171.99 Output Total 450 / 450 Balance 1721.99 / 1721.99 Laboratory Tests Past 24 Hrs 01/30/19 07:04 Diff Path Review Reviewed Medical Necessity - Tobacco Use Smoking Status: Never smoker Assessment/Plan All Active Problems (Last Reviewed 01/25/19 @ 15:09 by Fadia Bobo) Active labor at term (Acute) IUD contraception (Acute) Supervision of high-risk (Acute) Obesity affecting (Acute) (Acute) s/p PPD # 1 1. routine post delivery care 2. breast feeding- support given 3. rh positive 4. rubella immune
[2019-02-01] MEDS: Prenatal Vits Tablet 1 TABLET PO (09:48)
[2019-02-01] MEDS: Senna/Docusate Sodium 1 Tablet PO (09:48)
--- NOTE | 2019-02-01 11:21 | CASEMGMT ---
Addendum entered and electronically signed by Cass Leyva 02/01/19 11:28: Clarification: date of social work identification on 01/31/2019 and date of intervention occurring on 02/01/2019. -Cass Leyva. Original Note: Social Work Brief Labor and Delivery Unit ? Patient Address:?[address] [facility] [address] Phone:?[phone] (home)? ? Date of Referral:?01/31/2019 Time of Referral:?829 Date of Intervention:?01/31/2019 Time of Intervention:?1029 Referral Source: Social work identification Reason for Referral:?First time parents and baby admitted to the [facility] at [place]. ? Informants: ?Medical records, patient/mother of baby (MOB) Pamela Dimas, and father of baby (FOB) Arnel Dimas. ? History MICHELLE is 28 year old female, G1, P0 to 1 after delivering baby boy Robin Dimas at [facility] on 01.30.2019. ??MOB with care starting in the first trimester and regular thereafter. ?MICHELLE had a hemorrhage after Robin's . Robin developed tachypnea and poor feeding after , resulting in admission into the [facility]. ???MOB and FOB are . ?Robin is the first child for both. ? 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 ?Family has support from Robin's grandparents on both sides. ??MOB denies any history of depression, anxiety, or other mental health concerns. ?No reports or indication of substance abuse issues. ? Impression Met with MOB and FOB together. ?MOB engaged in conversation, and FOB participated when information elicited by social services counselor. ?Both pleasant, cooperative. ?MOB with good eye contact, affect and mood appropriate and congruent. MOB reports the delivery process was a lot to take in and then with baby going to the NICU, this was a lot too. ?MOB reports to be feeling better herself and feeling relieved that baby is able to be discharged too. ?MOB reports to be feeling good overall. ?MOB was receptive however to taking information on depression and anxiety. ?Briefly reviewed risk factors and importance of seeking out help and support. ?Observed FOB to look at packet provided by this social services counselor. ?MOB also voiced that it is good to have information in case needed, rather than not to have anything to refer back to if needed in the future. ?MOB and FOB deny any needs for home going. Report to have needed baby supplies and FOB will be home the remainder of the week to help with transition home. No reports or indication of safety concerns at home or in marital relationship. No issue with housing or transportation reported or indicated. Decline [facility] referrals but MOB reports to have information at home if changes mind down the road. ???No concerns voiced by nursing staff on the [facility], or at the hospital of delivery,regarding parent/child interactions. ?? ? Plan MOB is discharging as a patient from [facility]. Will remain in a courtesy room on labor and delivery until baby is able to be discharged. ? [facility] resources lists provided as well as depression packet for future reference if needed. ? ? No other services requested or indicated. ? LUIS Jerez
[2019-02-01 15:29] VITALS: BP 130/68; PULSE 85; RESP 16; TEMP 36.4
[2019-02-03 10:06] LABS: Pathology Specimen OB SEE PATHOLOGY REPORT
== END 2019-02-01 15:30 | disposition home or self-care (01) | DRG 798 ==
PROVIDERS: Admitting Provider Obstetrics & Gynecology; Referring Provider Obstetrics & Gynecology; Visit Provider Obstetrics & Gynecology
DX: O72.1 Other immediate postpartum hemorrhage (principal); Z37.0 Single live birth; O70.1 Second degree perineal laceration during delivery; O99.214 Obesity complicating childbirth; E66.9 Obesity, unspecified; Z3A.39 39 weeks gestation of pregnancy; Z97.5 Presence of (intrauterine) contraceptive device
CPT/HCPCS: 59050; 76815; 85025; 86850; 86900; 86901; 86920; 88307; 99218; J7120; A4216; G0378; J2405

== ENCOUNTER → 2019-03-16 15:05 | Outpatient (CLI) | payer OTHER, SELFPAY ==
[2019-03-16 09:44] VITALS: BMI 48.6
[2019-03-21 17:26] LABS: HPV Reflexed? NOT INDICATED
== END ==
PROVIDERS: Visit Provider Obstetrics & Gynecology
DX: Z12.4 Encounter for screening for malignant neoplasm of cervix (principal)
CPT/HCPCS: 88175; G0145

== ENCOUNTER 2021-08-26 10:11 | Outpatient (CLI) | payer OTHER, SELFPAY ==
[2021-08-30 16:10] LABS: HPV APTIMA, High Risk Negative (Negative)
== END 2021-08-26 23:59 | disposition home or self-care (01) ==
PROVIDERS: PCP Family Medicine; Referring Provider Obstetrics & Gynecology; Visit Provider Obstetrics & Gynecology
DX: Z12.4 Encounter for screening for malignant neoplasm of cervix (principal)
CPT/HCPCS: 87624; 88175; G0145

== ENCOUNTER → 2023-09-11 | Outpatient (CLI) | payer BC, SELFPAY ==
[2023-09-11 09:37] LABS: Absolute Lymphocyte Count 1.74 X10^3/uL (0.83-4.51); Absolute Neutrophil Count 6.7 X10^3/uL (2.0-7.7); Basophil# 0.03 X10^3/uL; Basophil% 0.3 % (0-1); Eosinophil# 0.02 X10^3/uL; Eosinophils% 0.2 % (0-5); Hematocrit 35.3 % (37-47); Hemoglobin 11.9 g/dL (12.0-15.0); Lymphocyte # 1.74 X10^3/ul (0.83-4.51); Lymphocyte % 19.2 % (19-41); Mean Corp Hgb Conc 33.7 g/dL (32-36); Mean Corpuscular Hgb 30.5 pg (27.0-32.0); Mean Corpuscular Volume 90.5 fL (81-99); Mean Platelet Vol. 9.7 fl (6.2-12.0); Monocyte% 5.5 % (0-10); NRBC Flagged by Analyzer 0 % (0-5); Neutrophil # 6.71 X10^3/uL (2.7-7.7); Neutrophil % 74.4 % (47-70); Platelet Count 279 K/mm3 (150-450); RBC Distribution Width CV 12.4 % (11.6-14.6); RBC Distribution Width SD 40.8 fl (35.1-43.9)
[2023-09-11 09:57] LABS: Hemoglobin A1c 5.1 % (3.8-5.6)
[2023-09-11 10:42] LABS: HIV - WCH Non-Reactive (Nonreactive); Hepatitis B Surface Antigen Non-Reactive (Nonreactive); Hepatitis C Antibody Non-Reactive (Nonreactive); Rubella IgG Reactive (Nonreactive); Syphilis Antibodies Non-reactive
[2023-09-14 20:07] LABS: Chlamydia By Nucleic Acid AMP Negative (Negative); Gonococcus By Nucleic Acid AMP Negative (Negative)
== END | disposition home or self-care (01) ==
PROVIDERS: Referring Provider Advanced Practice Midwife; Visit Provider Advanced Practice Midwife
DX: Z34.90 Encounter for supervision of normal pregnancy, unspecified, unspecified trimester (principal); E66.9 Obesity, unspecified
CPT/HCPCS: 36415; 83036; 85025; 86703; 86762; 86780; 86803; 86850; 86900; 86901; 87086; 87340; 87491; 87591

== ENCOUNTER → 2023-11-27 | Outpatient (CLI) | payer BC, SELFPAY ==
--- NOTE | 2023-11-27 15:30 | US_ITS ---
STUDY: SECOND AND THIRD TRIMESTER OBSTETRICAL ULTRASOUND REASON FOR EXAM: Female, 33 years old routine survey LMP: Unknown. TECHNIQUE: Transabdominal TECHNICAL QUALITY: Adequate. PRIOR ULTRASOUND: None. FINDINGS: There is a single intrauterine fetus. The fetus is moving. There is demonstrated cardiac activity with a heart rate of 144 bpm. There is a subjectively normal amniotic fluid volume. The largest amniotic fluid pocket measures 5.4 cm. The placenta is posterior in location and is not low lying. There are Grade 0 placental changes. The cervix measures 5 cm in length. The bilateral adnexal regions are normal. BIOMETRY: BPD: 4.9 cm: 20 weeks, 5 days HC: 17.6 cm: 20 weeks, 1 days AC: 16.27cm: 21 weeks, 2 days FL: 3.2 cm: 19 weeks, 6 days age by current US: 20 weeks, 3 days. SIMA by current US: 04/12/2024. Estimated weight: 307 grams, +/- 56 grams, 50 %. ANATOMY: Gender: Male Cranium: Normal lateral ventricles. Normal choroid plexus, there is a 5 mm right choroid plexus cyst.. Normal cerebellum. Normal cisterna magna. Normal face, nose and lips. Chest: Normal 4-chamber heart. Abdomen/Pelvis: Normal diaphragm. Normal stomach. Normal abdominal wall. Normal cord insertion. Normal 3 vessel cord. Normal kidneys both renal pelves measure 4 mm.. Normal bladder. Spine: Spine and visualized due to constant movement Extremities: Normal bilateral upper extremities. Normal bilateral lower extremities. US/OB Anatomy w/ Transvaginal IMPRESSION: Single live intrauterine 20 weeks 3 days by current ultrasound with SIMA of 04/12/2024. Heart rate 144 bpm. No suspicious sonographic findings, however, the spine of the fetus was not able to be accurately evaluated due to constant motion during the exam. Short-term follow-up study recommended to assess the spine. Electronically Signed: Anselmo Kelley MD at 15:16 EDT ,
== END | disposition home or self-care (01) ==
LOC: US 15:30
PROVIDERS: Referring Provider Obstetrics & Gynecology; Visit Provider Obstetrics & Gynecology
DX: Z34.91 Encounter for supervision of normal pregnancy, unspecified, first trimester (principal); Z3A.13 13 weeks gestation of pregnancy
CPT/HCPCS: 76805; 76817

== ENCOUNTER → 2023-12-25 | Outpatient (CLI) | payer BC, SELFPAY ==
--- NOTE | 2023-12-25 16:16 | US_ITS ---
EXAM: US , LIMITED CLINICAL INDICATION: More spine views TECHNIQUE: Real-time limited ultrasound of the maternal uterus with image documentation. COMPARISON: No relevant prior studies available. FINDINGS: FETUS: There is an intrauterine gestation. POSITION: The fetus is in variable position. There are limited views of the spine due to position. HEART RATE: heart rate is 148 bpm. AMNIOTIC FLUID: The maximum vertical pocket of amniotic fluid is 5.5 cm. US/OB Limited (No Biometrics) IMPRESSION: Intrauterine gestation with a heart rate 140. There are limited views of the spine position. No other measurements were obtained. Electronically Signed: Chano Sharpe MD at 22:09 EDT ,
== END | disposition home or self-care (01) ==
PROVIDERS: Referring Provider Obstetrics & Gynecology; Visit Provider Obstetrics & Gynecology
DX: O09.90 Supervision of high risk pregnancy, unspecified, unspecified trimester (principal); Z3A.00 Weeks of gestation of pregnancy not specified
CPT/HCPCS: 76815

== ENCOUNTER → 2024-01-19 | Outpatient (CLI) | payer BC, SELFPAY ==
[2024-01-19 08:45] LABS: Absolute Neutrophil Count 7.3 X10^3/uL (2.0-7.7); Basophil# 0.02 X10^3/uL; Basophil% 0.2 % (0-1); Eosinophil# 0.02 X10^3/uL; Eosinophils% 0.2 % (0-5); Hematocrit 33.8 % (37-47); Hemoglobin 10.7 g/dL (12.0-15.0); Lymphocyte % 14.1 % (19-41); Mean Corp Hgb Conc 31.7 g/dL (32-36); Mean Corpuscular Hgb 29.6 pg (27.0-32.0); Mean Corpuscular Volume 93.6 fL (81-99); Mean Platelet Vol. 9.6 fl (6.2-12.0); Monocyte# 0.56 X10^3/uL; Monocyte% 6.1 % (0-10); NRBC Flagged by Analyzer 0 % (0-5); Neutrophil # 7.29 X10^3/uL (2.7-7.7); Neutrophil % 78.8 % (47-70); Platelet Count 241 K/mm3 (150-450); RBC Distribution Width CV 13.3 % (11.6-14.6); RBC Distribution Width SD 45.1 fl (35.1-43.9); Red Blood Count 3.61 M/mm3 (4.2-5.4); White Blood Count 9.3 K/mm3 (4.4-11.0)
[2024-01-19 09:25] LABS: Glucose Challenge Gest 1H 50g 102 mg/dL (70-140)
[2024-01-19 09:36] LABS: HIV - WCH Non-Reactive (Nonreactive); Syphilis Antibodies Non-reactive
== END | disposition home or self-care (01) ==
PROVIDERS: Nurse Practitioner Women's Health; Referring Provider Obstetrics & Gynecology; Visit Provider Obstetrics & Gynecology
DX: O09.90 Supervision of high risk pregnancy, unspecified, unspecified trimester (principal); Z3A.21 21 weeks gestation of pregnancy; Z13.1 Encounter for screening for diabetes mellitus
CPT/HCPCS: 36415; 82950; 85025; 86703; 86780

== ENCOUNTER → 2024-02-19 | Outpatient (CLI) | payer OTHER, SELFPAY ==
--- NOTE | 2024-02-19 11:27 | US_ITS ---
STUDY: SECOND AND THIRD TRIMESTER OBSTETRICAL ULTRASOUND - LIMITED REASON FOR EXAM: Female, 33 years old obesity affecting -- BMI 48 LMP: 07/06/2023 PRIOR ULTRASOUND: 12/25/2023. TECHNIQUE: Transabdominal TECHNICAL QUALITY: Adequate. FINDINGS: There is a single intrauterine fetus. The fetus is in a breech presentation. There is demonstrated cardiac activity with a heart rate of 137 bpm. There is a normal amniotic fluid volume. The largest amniotic fluid pocket measures 6.9 cm. The amniotic fluid index (LIZETH) is 19.2 cm. The placenta is fundal in location. There are Grade 1 placental changes. The cervix is not visualized. BIOMETRY: BPD: 8.7: 35 weeks, 1 days HC: 31.3: 35 weeks, 0 days AC: 31.5: 35 weeks, 3 days FL: 6.5: 33 weeks, 2 days Age by LMP: 32 weeks, 4 days. SIMA by LMP: 04/11/2024 age by current US: 34 weeks, 4 days. SIMA by current US: 03/28/2024. Estimated weight: 2538 grams, +/- 381 grams, 95 percentile. Gender: US/OB Limited With Biometrics IMPRESSION: Single live fetus in a breech presentation. survey not performed on this exam. Placenta is grade 1 and is not low-lying. Cervix is closed. age by current US: 34 weeks, 4 days. SIMA by current US: 03/28/2024. Estimated weight: 2538 grams, +/- 381 grams, 95 percentile. Electronically Signed: Augusto Irizarry MD at 20:05 EDT ,
== END | disposition home or self-care (01) ==
PROVIDERS: Referring Provider Advanced Practice Midwife; Visit Provider Advanced Practice Midwife
DX: O99.213 Obesity complicating pregnancy, third trimester (principal); Z3A.00 Weeks of gestation of pregnancy not specified
CPT/HCPCS: 76816

== ENCOUNTER → 2024-02-23 | Outpatient (CLI) | payer OTHER, SELFPAY ==
[2024-02-23 12:46] LABS: Glucose Challenge Gest 1H 50g 117 mg/dL (70-140)
== END | disposition home or self-care (01) ==
LOC: WOBLAB 11:11
PROVIDERS: Referring Provider Obstetrics & Gynecology; Visit Provider Obstetrics & Gynecology
DX: O36.60X0 Maternal care for excessive fetal growth, unspecified trimester, not applicable or unspecified (principal); Z3A.00 Weeks of gestation of pregnancy not specified
CPT/HCPCS: 36415; 82950

== ENCOUNTER → 2024-02-29 | Outpatient (CLI) | payer OTHER, SELFPAY ==
[2024-02-29 10:38] LABS: Absolute Lymphocyte Count 1.26 X10^3/uL (0.83-4.51); Absolute Neutrophil Count 6.9 X10^3/uL (2.0-7.7); Basophil# 0.02 X10^3/uL; Basophil% 0.2 % (0-1); Eosinophil# 0.02 X10^3/uL; Eosinophils% 0.2 % (0-5); Hematocrit 34.2 % (37-47); Hemoglobin 10.9 g/dL (12.0-15.0); Lymphocyte # 1.26 X10^3/ul (0.83-4.51); Lymphocyte % 14.5 % (19-41); Mean Corp Hgb Conc 31.9 g/dL (32-36); Mean Corpuscular Hgb 29.9 pg (27.0-32.0); Mean Platelet Vol. 10.1 fl (6.2-12.0); Monocyte# 0.45 X10^3/uL; Monocyte% 5.2 % (0-10); NRBC Flagged by Analyzer 0 % (0-5); Neutrophil # 6.85 X10^3/uL (2.7-7.7); Platelet Count 225 K/mm3 (150-450); RBC Distribution Width CV 14.1 % (11.6-14.6); RBC Distribution Width SD 48.1 fl (35.1-43.9); Red Blood Count 3.64 M/mm3 (4.2-5.4); White Blood Count 8.7 K/mm3 (4.4-11.0)
== END | disposition home or self-care (01) ==
LOC: WOBLAB 09:03
PROVIDERS: Referring Provider Nurse Practitioner Women's Health; Visit Provider Nurse Practitioner Women's Health
DX: O99.013 Anemia complicating pregnancy, third trimester (principal); Z3A.00 Weeks of gestation of pregnancy not specified
CPT/HCPCS: 36415; 85025

== ENCOUNTER → 2024-03-15 | Outpatient (CLI) | payer SELFPAY | END | disposition home or self-care (01) | LOC: LABSPEC 16:01 | DX: O09.93 Supervision of high risk pregnancy, unspecified, third trimester (principal); Z3A.00 Weeks of gestation of pregnancy not specified | CPT/HCPCS: 87081; 87186 ==

== ENCOUNTER 2024-03-21 14:30 | Outpatient (CLI) | payer OTHER, SELFPAY ==
[2024-03-21 15:09] VITALS: BP 133/73; PULSE 81
[2024-03-21 15:12] VITALS: BMI 47.7
[2024-03-21 15:24] VITALS: BP 137/75; PULSE 85
[2024-03-21 15:40] VITALS: BP 136/69; PULSE 83
[2024-03-21 15:40] LABS: Hemoglobin 8.5 g/dL (12.0-15.0); Mean Corp Hgb Conc 32.7 g/dL (32-36); Mean Corpuscular Hgb 29.8 pg (27.0-32.0); Mean Corpuscular Volume 91.2 fL (81-99); Mean Platelet Vol. 10.2 fl (6.2-12.0); Platelet Count 176 K/mm3 (150-450); RBC Distribution Width CV 13.8 % (11.6-14.6); RBC Distribution Width SD 45.6 fl (35.1-43.9); Red Blood Count 2.85 M/mm3 (4.2-5.4); White Blood Count 9.8 K/mm3 (4.4-11.0)
[2024-03-21 15:54] VITALS: BP 133/71; PULSE 93
[2024-03-21 16:24] LABS: AST(SGOT) 20 U/L (15-37); Alanine Aminotransfer ALT/SGPT 20 U/L (13-56); EST Glomerular Filtration Rate 150 mL/min (>60); Est Glom Filt Rate - Afr Amer 182 mL/min (>60); Estimated Creatinine Clearance 238.41 ml/min
[2024-03-21 16:25] VITALS: BP 124/69; PULSE 75
--- NOTE | 2024-03-21 16:27 | OB.TRI.PN_ITS ---
Progress Notes Date of Service: 03/21/24 Progress Note: Patient presents for triage evaluation secondary to elevated BP in office at 37.0 weeks gestation. Pre e labs ordered. FHT: 150 Moderate variability reactive no decelerations category I tracing [place]: no Contractions Assessment and plan: SVE 2/70/-2, CBC and CMP normal except for hgb. Anemia noted and IV Venofer ordered. If PC ratio under 300-ok for discharge. Reactive NST, reassuring maternal and status. See problem list details for additional plan information. Laboratory Studies: Laboratory Tests 03/21/24 Range/Units 15:05 WBC 9.8 (4.4-11.0) K/mm3 RBC 2.85 L (4.2-5.4) M/mm3 Hgb 8.5 L (12.0-15.0) g/dL Hct 26.0 L (37-47) % MCV 91.2 (81-99) fL MCH 29.8 (27.0-32.0) pg MCHC 32.7 (32-36) g/dL RDW Std Deviation 45.6 H (35.1-43.9) fl RDW Coeff of Alexi 13.8 (11.6-14.6) % Plt Count 176 (150-450) K/mm3 MPV 10.2 (6.2-12.0) fl Creatinine 0.50 L (0.55-1.02) mg/dL Estim Creat Clear Calc 238.41 ml/min Est GFR (MDRD) Af Amer 182 (>60) mL/min Est GFR (MDRD) Non-Af 150 (>60) mL/min Uric Acid 4.0 (2.6-6.0) mg/dL AST 20 (15-37) U/L ALT 20 (13-56) U/L Charges/Coding Multi Select Codes Urinary/Genital Urinary/Genital CPT Codes: 20251-51 non-stress test Interp Assessment & Plan (1) Anemia affecting : COMMENT: 8.5 on 03/21. IV Iron ordered (2) Positive GBS test: COMMENT: treat in labor (3) Large for gestational age fetus: COMMENT: AC >99- repeat glucose-. pt requesting P C/S. scheduled for 04/04 @ 7:15 with JV (4) Anemia in preg-unspec: QUALIFIERS: Trimester: third trimester Qualified Code(s): O99.013 - Anemia complicating , third trimester COMMENT: add FE; recheck CBC 4 wk (5) Obesity affecting : QUALIFIERS: Trimester: third trimester Obesity type affecting : unspecified obesity Qualified Code(s): O99.213 - Obesity complicating , third trimester COMMENT: BMI 45 at NOB -A1C nl, healthy weight gain discussed, recommend growth us after 32 weeks and weekly nsts at 34 weeks (6) Hx of hemorrhage, currently : (7) Adopted: COMMENT: No hx of biological family. (8) Supervision of high-risk : QUALIFIERS: Trimester: third trimester Qualified Code(s): O09.93 - Supervision of high risk , unspecified, third trimester COMMENT: PRR,, SIMA 04/11/24, VENKATA Kelly, Arnel (9) : QUALIFIERS: Weeks of gestation: 37 weeks Qualified Code(s): Z3A.37 - 37 weeks gestation of COMMENT: declined ntd, genetic & carrier testing (10) Elevated BP without diagnosis of hypertension:
[2024-03-21 16:47] LABS: Protein, Urine (Random) 7.9 mg/dL (<11.9); Protein:Creat Ratio 186 mg/g CRE (0-200)
[2024-03-21] MEDS: Iron Sucrose Complex 200 MG in 0.9% Normal Saline (100mL Bag) 100 ML 220 MG IV (16:51)
== END 2024-03-21 17:40 | disposition home or self-care (01) ==
LOC: WPOUT 14:44 → WP 14:44
PROVIDERS: Referring Provider Advanced Practice Midwife; Visit Provider Advanced Practice Midwife
DX: O36.63X0 Maternal care for excessive fetal growth, third trimester, not applicable or unspecified (principal); R03.0 Elevated blood-pressure reading, without diagnosis of hypertension; Z3A.37 37 weeks gestation of pregnancy; O99.213 Obesity complicating pregnancy, third trimester; O99.02 Anemia complicating childbirth; O98.82 Other maternal infectious and parasitic diseases complicating childbirth; B95.1 Streptococcus, group B, as the cause of diseases classified elsewhere; D64.9 Anemia, unspecified
CPT/HCPCS: 96365; 36415; 59025; 59050; 82565; 82570; 84156; 84450; 84460; 84550; 85027; 99221; J1756; G0378

== ENCOUNTER 2024-03-27 20:30 | Outpatient (CLI) | payer OTHER, SELFPAY ==
[2024-03-27] VITALS (7 sets, daily range): BP systolic 137–145; BP diastolic 67–74; PULSE 67–80; RESP 18; TEMP 36.4–37.2; O2SAT 82–98; BMI 48.9
--- NOTE | 2024-03-27 23:00 | OB.TRI.HP_ITS ---
HPI - General HPI Narrative SHAHRAM SMITH, is a 33 y/o @ 37 weeks 6 days who presents to L&D for contractions. Her baby is already estimated to weigh over 9 pounds and is requesting section. Maternal Data Information SIMA Calculator Estimated Delivery Date Method Current WG Current Estimate 04/11/24 LMP (Certain) 38w 3d PFSH PFSH Medical History Asthma Home Medications ?Medication ?Instructions ?Recorded ?Last Taken ?Type vits 75-iron 28 mg-folic 1 pkg PO DAILY 11/02/23 03/29/24 History acid 800 mcg-omega-3 oral combo pack (One A Day Women's DHA) ferrous sulfate 325 mg (65 mg 65 mg PO DAILY anemia 03/27/24 03/28/24 History iron) tablet (iron) Allergy/AdvReac Type Severity Reaction Status Date / Time No Known Allergies Allergy Verified 03/29/24 11:49 Surgical History History of tonsillectomy and adenoidectomy [place] teeth extracted History of tonsillectomy Social History adopted: Yes household members: spouse and children number of children: 1 current occupational status: employed 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 current occupational exposures/hazards: No pets and animals: Yes pets and animals: dog(s) history of recent travel: No sexually active: Yes Smoking Status: Never smoker alcohol intake: current alcohol intake frequency: holidays/special occasions only details: Not while substance use type: does not use well-balanced diet: daily or most days caffeine: No eating out: 1-3 times/week during the past year weight has: remained stable what type of physical activity do you participate in: none frequency: 3-4 times per week saad/protestant: Zoroastrian seatbelt use: always do you feel safe at home: Yes additional social history: [employer] History 2 Elective abortions Hx Para 1 Spontaneous abortions Hx # Term Pregnancies Ectopic pregnancies Hx # Pregnancies Multiple births # of living children 1 Past Pregnancies Del. Date Name GA/Weeks Outcome Route Bth Weight Infant Gen Labor Lgth Anesthesia Del Locatn Provider FOB 01/30/19 Kelly 39 live - full term 9lbs 2oz Male ep idural [facility] Delivery Date: 01/30/19 Last Updated by: Susy Soliman Moderate PPH maternal fever Visit Details Expected Delivery Route/Plan Labor Preferences- CB/BF classes: no labor support person: Arnel labor intervention preferences: [] pain management options preferred: epidural cut cord/dad catch: yes : yes PP control planned: discussed discussed possible routes of delivery and associated risks: [] special requests: [] Plans Covid status: [] Flu vaccine: [] Tdap vaccine: given Rhogam: NA LARC form signed: yes Problem list reviewed and updated with the most current plan of care details and appropriate orders placed. Relevant counseling for the gestational age provided. Continue routine care and follow up unless otherwise noted in visit notes/problem list details OB Flowsheet Initial Weight: Not Recorded Date -?-?-?-?-?-?-?-?-?-?-?-?- EGA Weight BP Urine Prot -?-?-?-?-?-?-?-?-?-?-?-?- Glucose FHR FuHt Pres Dilation -?-?-?-?-?-?-?-?-?-?-?-?- Effaced St Visit Note 09/11/23 -?-?-?-?-?-?-?-?-?-?-?-?- 9w 4d 298 lb 6 oz 123/87 -?-?-?-?-?-?-?-?-?-?-?-?- 175 -?-?-?-?-?-?-?-?-?-?-?-?- KW- CRL cons wit h dates. declines NIPT 10/08/23 -?-?-?-?-?-?--?-?-?-?-?-?- 13w 3d 300 lb 2 oz 132/86 Nega tive -?-?-?-?-?-?-?-?-?-?-?-?- Negative 150 -?-?-?-?-?-?-?-?-?-?-?-?- JV- no cramping or spotting. nausea is improved. will call if insurance approves anatomy scan with MFM. 11/02/23 -?-?-?-?-?-?-?-?-?-?-?-?- 17w 0d 299 lb 136/80 Negative -?-?-?-?-?-?-?-?-?-?-?-?- Negative 150 -?-?-?-?-?-?-?-?-?-?-?-?- SM- no vb lof cr maping 12/04/23 -?-?-?-?-?-?-?-?-?-?-?-?- 21w 4d 304 lb 6 oz 128/83 Nega tive -?-?-?-?-?-?-?-?-?-?-?-?- Negative 152 -?-?-?-?-?-?-?-?-?-?-?-?- JV- no lof, vagi nal bleeding, or cramping. Has some right oblique pain. thinks is muscular. needs rpt views of baby spine. 01/01/24 -?-?-?-?-?-?-?-?-?-?-?-?- 25w 4d 308 lb 4 oz 125/85 Nega tive -?-?-?-?-?-?-?-?-?-?-?-?- Negative 145 26 -?-?-?-?-?-?-?-?-?-?-?-?- LC- no vb/lof/ct x. good fm. 28 week labs ordered. 01/25/24 -?-?-?-?-?-?-?-?-?-?-?-?- 29w 0d 312 lb 128/72 Negative -?-?-?-?-?-?-?-?-?-?-?-?- Negative 139 29 -?-?-?-?-?-?-?-?-?-?-?-?- MH-No VB, LOF. G ood FM. tdap, larc. 02/12/24 -?-?-?-?-?-?-?-?-?-?-?-?- 31w 4d 315 lb 134/74 Negative -?-?-?-?-?-?-?-?-?-?-?-?- Negative 145 -?-?-?-?-?-?-?-?-?-?-?-?- kw-no vb/lof ctx . good fm. flu shot today. growth us ordered 02/23/24 -?-?-?-?-?-?-?-?-?-?-?-?- 33w 1d 316 lb 2 oz 124/80 Nega tive -?-?-?-?-?-?-?-?-?-?-?-?- Negative 141 41 Breech -?-?-?-?-?-?-?-?-?-?-?-?- JV- growth scan at [facility] shows 99th% ac. doing rpt gct today. ordering growth scan with MFM for 36 weeks 02/29/24 -?-?-?-?-?-?-?-?-?-?-?-?- 34w 0d 314 lb 119/78 Negative -?-?-?-?-?-?-?-?-?-?-?-?- Negative 150 -?-?-?-?-?-?-?-?-?-?-?-?- MH NST only and reactive. Growth US 02/05 w MFM 03/10/24 -?-?-?-?-?-?-?-?-?-?-?-?- 35w 3d 312 lb 119/72 -?-?-?-?-?-?-?-?-?-?-?-?- 140 -?-?-?-?-?-?-?-?-?-?-?-?- SM- no vb lof go od fm no regular ctx very active prolonged accels. 03/15/24 -?-?-?-?-?-?-?-?-?-?-?-?- 36w 1d -?-?-?-?-?-?-?-?-?-?-?-?- 130 140 -?-?-?-?-?-?-?--?-?-?-?-?- KW- Growth US re viewed with pt. EFW [id number] today. had BPP 12/16 today. patient requesting P C/S for macrosomia. 03/21/24 -?-?-?-?-?-?-?-?-?-?-?-?- 37w 0d 315 lb 148/83 Negative -?-?-?-?-?-?-?-?-?-?-?-?- Negative 145 -?-?-?-?-?-?-?-?-?-?-?-?- KW- no vb/lof/ct x. good fm. elevated BP today and concerns with swelling and nausea. mild headache yesterday. to for pre e labs 03/29/24 -?-?-?-?-?-?-?-?-?-?-?-?- 38w 1d 320 lb 5 oz 112/75 Nega tive -?-?-?-?-?-?-?-?-?-?-?-?- Negative 150 Cephalic 2 -?-?-?-?-?-?-?-?-?-?-?-?- 60 -3 JV- NST re active. planning primary section for LGA. EFW this week is 10 pounds. next week 10.5 lbs ROS Constitutional Constitutional: Reports systems reviewed and no addt'l complaints, except as documented Gastrointestinal Gastrointestinal: Denies bloating, constipation, cramping, diarrhea, nausea or vomiting Genitourinary Genitourinary: Reports other Details: Denies vaginal odor, vaginal bleeding, or vaginal discharge ; Denies difficulty urinating or flank pain Physical Exam HEENT normocephalic Resp normal respiratory effort and normal air movement no CVA tenderness Extremity normal to inspection General Extremity: edema bilateral (trace ) NST FHR Rate Baby A Baseline: 140 Variability:: Moderate Accelerations:: 15 x 15 Decelerations:: None NST Reactive:: Yes FHR Category:: Category I Assessment & Plan (1) False labor after 37 completed weeks of gestation: (2) LGA (large for gestational age) fetus affecting management of mother: (3) Elevated BP without diagnosis of hypertension: (4) Anemia affecting : COMMENT: 8.5 on 03/21. IV Iron ordered (5) Positive GBS test: COMMENT: treat in labor (6) Large for gestational age fetus: COMMENT: AC >99- repeat glucose-. pt requesting P C/S. scheduled for 04/04 @ 7:15 with JV (7) Anemia in preg-unspec: QUALIFIERS: Trimester: third trimester Qualified Code(s): O99.013 - Anemia complicating , third trimester COMMENT: add FE; recheck CBC 4 wk (8) Obesity affecting : QUALIFIERS: Trimester: third trimester Obesity type affecting : unspecified obesity Qualified Code(s): O99.213 - Obesity complicating , third trimester COMMENT: BMI 45 at NOB -A1C nl, healthy weight gain discussed, recommend growth us after 32 weeks and weekly nsts at 34 weeks (9) Hx of hemorrhage, currently : (10) Adopted: COMMENT: No hx of biological family. (11) Supervision of high-risk : QUALIFIERS: Trimester: third trimester Qualified Code(s): O09.93 - Supervision of high risk , unspecified, third trimester COMMENT: PRR,, SIMA 04/11/24, PC Robin, Arnel (12) : QUALIFIERS: Weeks of gestation: 38 weeks Qualified Code(s): Z3A.38 - 38 weeks gestation of COMMENT: declined ntd, genetic & carrier testing PLAN: Plan cervix is unchanged after 2 hours. plan to dc to home. labor precautions discussed nst reactive Charges/Coding Multi Select Codes Visit Charges Office Visit/Consults: 17992 OV L3 Est 20min Urinary/Genital Urinary/Genital CPT Codes: 40084-35 non-stress test Interp
[2024-03-28 11:19] VITALS: BP 120/70; PULSE 85
== END 2024-03-27 23:50 | disposition home or self-care (01) ==
LOC: WPOUT 20:34 → WP 20:34
PROVIDERS: Referring Provider Obstetrics & Gynecology; Visit Provider Obstetrics & Gynecology
DX: O47.1 False labor at or after 37 completed weeks of gestation (principal); Z3A.37 37 weeks gestation of pregnancy; O36.63X0 Maternal care for excessive fetal growth, third trimester, not applicable or unspecified; O99.891 Other specified diseases and conditions complicating pregnancy; R03.0 Elevated blood-pressure reading, without diagnosis of hypertension; O99.013 Anemia complicating pregnancy, third trimester; O99.820 Streptococcus B carrier state complicating pregnancy; O99.213 Obesity complicating pregnancy, third trimester
CPT/HCPCS: 59025; 59050; 99221; G0378

== ENCOUNTER 2024-03-29 10:54 | Outpatient (CLI) | payer OTHER, SELFPAY ==
[2024-03-29] MEDS: 0.9% NaCl Peripheral Flush Adult/Peds IV (11:48)
[2024-03-29 11:50] VITALS: BP 146/72; PULSE 76; RESP 16; TEMP 37; O2SAT 95; BMI 48.6
[2024-03-29] MEDS: 0.9% NaCl IVPB Med Flush (250 mL) 15 ML IV (12:02)
[2024-03-29] MEDS: Iron Sucrose Complex 300 MG in 0.9% Normal Saline (250mL Bag) 250 ML 177 MG IV (12:03)
[2024-03-29 13:54] VITALS: BP 142/60; PULSE 87; RESP 18; TEMP 36; O2SAT 98
== END 2024-03-29 23:59 | disposition home or self-care (01) ==
LOC: MEDOUTP 10:56
PROVIDERS: Referring Provider Advanced Practice Midwife; Visit Provider Advanced Practice Midwife
DX: D64.9 Anemia, unspecified (principal)
CPT/HCPCS: 96365; J1756; J7050; A4216

== ENCOUNTER 2024-04-04 05:06 | Inpatient (IN) | payer OTHER, SELFPAY ==
[2024-04-04] VITALS (15 sets, daily range): BP systolic 114–134; BP diastolic 61–76; PULSE 75–95; RESP 14–20; TEMP 36.7–37.2; O2SAT 94–99; BMI 48.6
[2024-04-04] MEDS: Lactated Ringers 1,000 ML 999 ML IV (05:40)
[2024-04-04 05:52] LABS: Absolute Lymphocyte Count 1.76 X10^3/uL (0.83-4.51); Basophil# 0.01 X10^3/uL; Basophil% 0.1 % (0-1); Eosinophil# 0.02 X10^3/uL; Eosinophils% 0.2 % (0-5); Hemoglobin 11.2 g/dL (12.0-15.0); Lymphocyte # 1.76 X10^3/ul (0.83-4.51); Lymphocyte % 20.6 % (19-41); Mean Corp Hgb Conc 32.9 g/dL (32-36); Mean Corpuscular Hgb 30.4 pg (27.0-32.0); Mean Corpuscular Volume 92.4 fL (81-99); Monocyte# 0.67 X10^3/uL; Monocyte% 7.8 % (0-10); NRBC Flagged by Analyzer 0 % (0-5); Neutrophil # 6.03 X10^3/uL (2.7-7.7); Neutrophil % 70.7 % (47-70); Platelet Count 202 K/mm3 (150-450); RBC Distribution Width SD 47.3 fl (35.1-43.9); Red Blood Count 3.68 M/mm3 (4.2-5.4); White Blood Count 8.5 K/mm3 (4.4-11.0)
[2024-04-04] MEDS: Acetaminophen 500 MG Tablet 1000 MG PO ×3 (05:52→18:44)
[2024-04-04] MEDS: Lactated Ringers 1,000 ML 150 ML IV (06:43)
[2024-04-04] MEDS: Sodium Citrate/Citric Acid 30 ML UDC PO (06:43)
[2024-04-04] MEDS: Cefazolin 3 GM in Syringe 1 EACH IV (07:26)
[2024-04-04] MEDS: BUPIVACAINE LIPOSOME/PF 20 ML VIAL OPERA.SITE (08:15)
[2024-04-04] MEDS: Bupivacaine 0.25% 30 ML Vial INFILT (08:15)
[2024-04-04 08:22] LABS: Syphilis Antibodies Non-reactive
[2024-04-04] MEDS: Oxytocin 15 Units/NS 250ml 15 UNITS/250 ML IV.SOLN 83 UNITS IV (08:38)
[2024-04-04] MEDS: Ketorolac 30 MG/ML Syringe IV ×3 (09:18→21:17)
[2024-04-04] MEDS: 0.9% Saline Lock 10 ML Syringe IV ×2 (15:10→21:17)
[2024-04-04] MEDS: Enoxaparin 40 MG/0.4 ML Syringe SC (19:37)
[2024-04-05] VITALS: BP 123/71; PULSE 89; RESP 17; TEMP 36.6; O2SAT 96
[2024-04-05] MEDS: Acetaminophen 500 MG Tablet 1000 MG PO ×4 (00:12→17:48)
[2024-04-05] MEDS: 0.9% Saline Lock 10 ML Syringe IV ×2 (03:33→06:30)
[2024-04-05] MEDS: Ketorolac 30 MG/ML Syringe IV (03:33)
[2024-04-05 04:00] VITALS: BP 135/76; PULSE 79; RESP 18; TEMP 36.6; O2SAT 98
[2024-04-05 07:30] LABS: Hematocrit 29.4 % (37-47); Hemoglobin 9.7 g/dL (12.0-15.0); Mean Corpuscular Volume 93.9 fL (81-99); Mean Platelet Vol. 10.1 fl (6.2-12.0); Platelet Count 165 K/mm3 (150-450); RBC Distribution Width CV 14.6 % (11.6-14.6); RBC Distribution Width SD 48.6 fl (35.1-43.9); Red Blood Count 3.13 M/mm3 (4.2-5.4); White Blood Count 8.3 K/mm3 (4.4-11.0)
[2024-04-05 07:55] VITALS: BP 137/75; PULSE 78; RESP 16; TEMP 36.7; O2SAT 97
[2024-04-05] MEDS: Senna/Docusate Sodium 1 Tablet PO (08:58)
[2024-04-05] MEDS: Ibuprofen 600 MG Tablet PO ×2 (08:58→15:04)
[2024-04-05 15:05] VITALS: BP 124/71; PULSE 74; RESP 16; TEMP 36.6; O2SAT 96
== END 2024-04-05 18:10 | disposition home or self-care (01) | DRG 788 ==
PROVIDERS: Admitting Provider Obstetrics & Gynecology; Visit Provider Obstetrics & Gynecology
PROC: 10D00Z1 Extraction of Products of Conception, Low, Open Approach (ICD-10-PCS; CPT 59514; principal; 2024-04-04 07:00)
DX: O36.63X0 Maternal care for excessive fetal growth, third trimester, not applicable or unspecified (principal); O99.214 Obesity complicating childbirth; D64.9 Anemia, unspecified; F17.210 Nicotine dependence, cigarettes, uncomplicated; R03.0 Elevated blood-pressure reading, without diagnosis of hypertension; O99.02 Anemia complicating childbirth; O99.824 Streptococcus B carrier state complicating childbirth; O99.892 Other specified diseases and conditions complicating childbirth; O99.334 Smoking (tobacco) complicating childbirth; Z37.0 Single live birth; O69.2XX0 Labor and delivery complicated by other cord entanglement, with compression, not applicable or unspecified; Z3A.39 39 weeks gestation of pregnancy
CPT/HCPCS: 36415; 59050; 85025; 85027; 86780; 86850; 86900; 86901; 99221; J7120; A4216; G0378; J2405

== ENCOUNTER → 2024-04-18 | Outpatient (CLI) | payer OTHER, SELFPAY ==
[2024-04-18 11:40] LABS: Absolute Lymphocyte Count 1.89 X10^3/uL (0.83-4.51); Absolute Neutrophil Count 6.7 X10^3/uL (2.0-7.7); Basophil# 0.04 X10^3/uL; Basophil% 0.4 % (0-1); Eosinophil# 0.05 X10^3/uL; Eosinophils% 0.5 % (0-5); Hematocrit 39.4 % (37-47); Hemoglobin 12.5 g/dL (12.0-15.0); Lymphocyte # 1.89 X10^3/ul (0.83-4.51); Lymphocyte % 20.6 % (19-41); Mean Corp Hgb Conc 31.7 g/dL (32-36); Mean Corpuscular Hgb 29.6 pg (27.0-32.0); Mean Corpuscular Volume 93.4 fL (81-99); Mean Platelet Vol. 9.1 fl (6.2-12.0); Monocyte# 0.44 X10^3/uL; Monocyte% 4.8 % (0-10); NRBC Flagged by Analyzer 0 % (0-5); Neutrophil # 6.73 X10^3/uL (2.7-7.7); Neutrophil % 73.4 % (47-70); Platelet Count 315 K/mm3 (150-450); RBC Distribution Width CV 12.8 % (11.6-14.6); RBC Distribution Width SD 43.9 fl (35.1-43.9); Red Blood Count 4.22 M/mm3 (4.2-5.4); White Blood Count 9.2 K/mm3 (4.4-11.0)
== END | disposition home or self-care (01) ==
LOC: BWCLAB 10:51
PROVIDERS: Referring Provider Nurse Practitioner Women's Health; Visit Provider Nurse Practitioner Women's Health
DX: D64.9 Anemia, unspecified (principal)
CPT/HCPCS: 36415; 85025